=== PATIENT | female | born 1970 | race Caucasian/White ===

== ENCOUNTER 2016-07-31 03:00 | Emergency (ER) | payer OTHER ==
[~2016-07-31 03:00] MED LIST: CLEOCIN HCL300 M1 PO; LORTAB 7.51 TAB PO; NO MEDICATIONS; ORUDIS75 M1 PO
[2016-07-31 03:49] LABS: BASOPHIL% 0.5 % (0-2.5); EOSINOPHIL# 0.1 X10e3 (0-0.7); EOSINOPHIL% 0.6 % (0.0-7.0); HEMATOCRIT 34.9 % (35.0-45.0); HEMOGLOBIN 12.1 gm/dL (12.0-16.0); LYMPHOCYTE# 1.8 X10e3 (1.0-3.5); LYMPHOCYTE% 16.9 % (17.0-45.0); MEAN CELL VOLUME 87.3 FL (83-96); MEAN CORPUSCULAR HEMOGLOBIN 30.3 PG (28-34); MEAN CORPUSCULAR HGB CONC 34.7 g/dL (30-36); MONOCYTE# 0.7 X10e3 (0-1.0); MONOCYTE% 6.4 % (3.0-12.0); NEUTROPHIL% 75.6 % (40-75); PLATELET COUNT 349 X10e3 (140-420); RED CELL DISTRIBUTION WIDTH 13.2 % (11.0-15.5); WHITE BLOOD COUNT 10.6 X10e3 (4.0-10.5)
[2016-07-31 03:53] LABS: DIFF IND NO
[2016-07-31 04:00] LABS: URINE SOURCE CLEAN CATCH
[2016-07-31 04:15] LABS: URINE APPEARANCE CLOUDY; URINE BLOOD TRACE (NEG); URINE COLOR DK YELLOW; URINE GLUCOSE NEG (NEG); URINE KETONE TRACE (NEG); URINE LEUKOCYTE ESTERASE 2+ (NEG); URINE NITRATE POS (NEG); URINE PH 5.5 (5-8); URINE PROTEIN 1+ (NEG); URINE SPECIFIC GRAVITY 1.031 (1.003-1.035)
[2016-07-31 04:18] LABS: CULTURE INDICATED? YES; URINE BACTERIA AUWI 4+ (NEGATIVE); URINE SQUAMOUS EPITHELIAL CELL FEW /[HPF]; UWBCS1 AUWI 50-100 (0-5)
[2016-07-31 04:22] LABS: BLOOD UREA NITROGEN 6 mg/dL (9-23); CARBON DIOXIDE 26 mmol/L (22-31); CHLORIDE 95 mmol/L (100-111); CREATININE SERUM 0.6 mg/dL (0.6-1.4); GLOM FILT RATE Estimated ABOVE60 mL/min (>60); GLUCOSE FASTING 117 mg/dL (70-110); SODIUM 130 mmol/L (135-145)
[2016-07-31 04:24] LABS: POTASSIUM 2.7 mmol/L (3.5-5.1)
[2016-07-31 04:40] LABS: URINE BILIRUBIN POS (NEG)
== END 2016-07-31 06:30 | disposition home or self-care (01) ==
LOC: CED 03:00
PROVIDERS: Physician Assistant Medical
DX: L02.413 Cutaneous abscess of right upper limb (principal); F17.210 Nicotine dependence, cigarettes, uncomplicated; Z88.1 Allergy status to other antibiotic agents; Z90.49 Acquired absence of other specified parts of digestive tract; N39.0 Urinary tract infection, site not specified
CPT/HCPCS: 10060; 36415; 80048; 81003; 85025; 87070; 87077; 87086; 87186; 87205; 96361; 96365; 99284

== ENCOUNTER 2016-09-11 23:57 | Emergency (ER) | payer OTHER ==
--- NOTE | ~2016-09-11 | CR142 ---
[facility] A Service of [facility] RADIOLOGY TEXT RESULTS PATIENT: ELISA VILLATORO LOCATION: [facility] : 70 UNIT #: [id number] AGE: [address]: Boom Rivera MD SEX: F ORDER DR: [id number] [address] [place], [place] [address] [id number] MR#: [id number] Acc #: [id number] NAME: ELISA VILLATORO. : 1970 SEX: F STUDY DATE/TIME: 09/12/2016 2:14 UNIT: [facility] ROOM: STUDY DESCRIPTION: CR Hand Min 3 Views Rt Attending Physician: Boom Rivera M.D. Ordering Physician: Boom Rivera M.D. Primary Care Physician: No Primary Care Physician MEDICAL IMAGING REPORT This report is preliminary unless electronic signature is present EXAMINATION 3 views of the right hand DATE 09/12/2016 HISTORY Right hand pain and swelling in the mid hand today. Drug use. COMPARISON None. FINDINGS Right hand soft tissue swelling is seen, particularly at the dorsum. No retained radiopaque foreign body is seen. No subcutaneous air is evident. No fracture. No joint dislocation. No significant osteoarthritic change or evidence of osteomyelitis. IMPRESSION Right hand soft tissue swelling. No acute osseous abnormality or retained radiopaque foreign body. Dictated by... Magdalena Leone M.D. THIS IS AN ELECTRONICALLY VERIFIED REPORT Magdalena Leone M.D. at 09/12/2016 10:02 PM Leela/dionne TD: 09/12/2016 08:23 JOB #: [id number] [facility] A Service [facility] RADIOLOGY TEXT RESULTS PATIENT: ELISA VILLATORO LOCATION: [facility] : 70 UNIT #: [id number] AGE: [address]: Boom Rivera MD SEX: F ORDER DR: MEDICAL IMAGING REPORT Page 1 of 1 COPY
--- NOTE | ~2016-09-11 | EKG ---
PATIENT: ELISA VILLATORO UNIT #: [id number] Ventricular Rate: 105 BPM Atrial Rate: 105 BPM P-R Interval: 156 ms QRS Duration: 80 ms Q-T Interval: 380 ms QTC Calculation(Bezet): 502 ms P Leland: 72 degrees Calculated R Leland: 71 degrees Calculated T Leland: 68 degrees Diagnosis Line: Sinus tachycardia Diagnosis Line: Otherwise normal ECG Diagnosis Line: No previous ECGs available Diagnosis Line: Confirmed by BONNIE JERNIGAN MD ([id number]) on 09/12/2016 Diagnosis Line: 10:47:26 PM INTERPRETING MD: RERE AVINA
[2016-09-12 03:04] LABS: BASOPHIL% 0.3 % (0-2.5); EOSINOPHIL# 0.1 X10e3 (0-0.7); EOSINOPHIL% 0.4 % (0.0-7.0); HEMATOCRIT 34.6 % (35.0-45.0); HEMOGLOBIN 11.5 gm/dL (12.0-16.0); LYMPHOCYTE% 15.1 % (17.0-45.0); MEAN CELL VOLUME 86.8 FL (83-96); MEAN CORPUSCULAR HEMOGLOBIN 28.8 PG (28-34); MEAN CORPUSCULAR HGB CONC 33.1 g/dL (30-36); MEAN PLATELET VOLUME 7.8 FL (6.5-11.5); MONOCYTE# 0.8 X10e3 (0-1.0); MONOCYTE% 6.1 % (3.0-12.0); NEUTROPHIL# 10.3 X10e3 (1.5-7.1); NEUTROPHIL% 78.1 % (40-75); PLATELET COUNT 269 X10e3 (140-420); RED BLOOD COUNT 3.99 X10e (3.90-5.30); RED CELL DISTRIBUTION WIDTH 13.2 % (11.0-15.5); WHITE BLOOD COUNT 13.2 X10e3 (4.0-10.5)
[2016-09-12 03:05] LABS: DIFF IND NO
[2016-09-12 03:23] LABS: ALBUMIN SERUM 3.5 g/dL (3.5-5.0); BILIRUBIN, DIRECT 0.1 mg/dL (0.0-0.2); BILIRUBIN,INDIRECT 0.7 mg/dL (0.0-0.9); BILIRUBIN,TOTAL 0.8 mg/dL (0.2-2.0); CALCIUM SERUM 8.6 mg/dL (8.4-10.2); CREATININE SERUM 0.6 mg/dL (0.6-1.4); GLOM FILT RATE Estimated 109.3 mL/min (>60); POTASSIUM 3.1 mmol/L (3.5-5.1)
== END 2016-09-12 07:35 | disposition short-term general hospital (02) ==
LOC: CED 23:57
PROVIDERS: Emergency Medicine
DX: F17.200 Nicotine dependence, unspecified, uncomplicated (principal); L03.114 Cellulitis of left upper limb
CPT/HCPCS: 36415; 73130; 80048; 80076; 83605; 85025; 87040; 93005; 96361; 96374; 99285; J1885; J3370

== ENCOUNTER 2016-11-30 19:19 | Emergency (ER) | payer OTHER | END 2016-11-30 20:25 | disposition left against medical advice (07) | LOC: CED 19:19 | DX: Z53.21 Procedure and treatment not carried out due to patient leaving prior to being seen by health care provider (principal) | CPT/HCPCS: 84703; J2310 ==